=== PATIENT | female | born 1945 | race Caucasian/White ===

== ENCOUNTER → 2020-08-19 | Outpatient (CLI) | payer MEDICARE ==
--- NOTE | 2020-08-19 13:36 | RAD ---
Examination: US BREAST LT, MG DIAGNOSTICUNILAT MAMMO History: ABNORMAL MAMMOGRAM CALLBACK Comparison/Correlation: None Findings: Limited left breast ultrasound exam was performed at the 2:00 and 3:00 region. Imaging of t he left axilla was also performed. There is no mass, lymph node, or suspicious collection. Spot compression imaging of the left outer breast was performed in the CC projection. CAD was utilize d. Scattered fibroglandular densities are noted. There is no persistent suspicious asymmetry. Impression: BI-RADS Category 1-negative. Annual screening mammographic examination is recommended. Electronically signed by: Otis Lujan MD (08/19/2020 1:33 PM) [id number]
== END ==
LOC: US 10:54
PROVIDERS: ATTEND Family Medicine
DX: R92.2 Inconclusive mammogram (principal)
CPT/HCPCS: 76641; 77065